=== PATIENT | female | born 1990 | race Caucasian/White ===

== ENCOUNTER 2017-03-18 15:12 | Emergency (ER) | payer OTHER ==
[~2017-03-18] VITALS: Ht 154.9 cm; Wt 70.3 kg
[~2017-03-18 15:12] MED LIST: CEPH500C PO; PREN1TAB58 PO
[2017-03-18] MEDS ORDERED: IV NORMAL SALINE 1,000ML 1,000 ML IV SCH (15:48)
[2017-03-18 16:16] LABS: BASO # 0.1 x10^3/uL (0.0-0.2); BASO % 1 % (0-3); EOS # 0.1 x10^3/uL (0.0-0.7); EOS % 1 % (0-3); HEMATOCRIT 39.4 % (36.0-47.0); HEMOGLOBIN 13.2 g/dL (12.0-15.5); LYMPH # 2.4 x10^3/uL (1.0-4.8); LYMPH % 20 % (24-48); MEAN CORPUSCULAR HEMOGLOBIN 31 pg (25-35); MEAN CORPUSCULAR HGB CONC 34 g/dL (31-37); MEAN CORPUSCULAR VOLUME 91 fL (79-100); MONO # 0.8 x10^3/uL (0.0-1.1); MONO % 7 % (0-9); NEUT # 8.5 x10^3uL (1.8-7.7); NEUT % 72 % (31-73); PLATELET COUNT 290 x10^3/uL (140-400); RED BLOOD COUNT 4.32 x10^6/uL (3.50-5.40); RED CELL DISTRIBUTION WIDTH 13.2 % (11.5-14.5); WHITE BLOOD COUNT 11.8 x10^3/uL (4.0-11.0)
[2017-03-18 16:22] LABS: BACTERIA,URINE FEW /HPF (0-FEW); BILIRUBIN,URINE NEG (NEG); CLARITY,URINE CLEAR; COLOR,URINE YELLOW; GLUCOSE,URINE NEG (NEG); NITRITE,URINE NEG (NEG); SQUAMOUS EPITHELIAL CELL,UR MOD /LPF; UROBILINOGEN,URINE 0.2 mg/dL (0.2 mg/dL)
[2017-03-18 16:27] LABS: CALCIUM 9.2 mg/dL (8.5-10.1); CREATININE 0.6 mg/dL (0.6-1.0); GFR 120.8; MAGNESIUM 1.9 mg/dL (1.8-2.4); POTASSIUM 3.8 mmol/L (3.5-5.1)
[2017-03-18] MEDS ORDERED: ONDANSETRON PF 4 MG/2 ML VIAL. IV ONE (16:30)
--- NOTE | 2017-03-18 16:50 | PHYS DOC ---
Past History Past Medical History: No Pertinent History Past Surgical History: No Surgical History Smoking: Non-smoker Alcohol Use: None Drug Use: None Adult General Chief Complaint Chief Complaint: VOMITING IN HPI HPI Patient is a 26 year old female who presents with complaint of vomiting. Patient states that she has been having significant vomiting over the past 3-4 days. Patient states however that her symptoms started a couple weeks ago. The patient took a test during that time and found out that she was . The patient's last menstrual period was January 12, 2017. The patient states that she is . Patient has not had any care with her current . The patient states that she is establishing an appointment with [facility] for follow-up in the next 1-2 weeks. Patient states that she is currently having lower abdominal cramping which she attributes to difficulty with tolerating oral intake. Patient rates her pain as 4 out of 10 currently. Patient has had numerous episodes of vomiting and states that she feels dehydrated. Patient states that she did have similar symptoms with her previous pregnancies but states that the symptoms have been more severe. Patient denies any fever and denies dysuria or hematuria. Patient also has not had any vaginal bleeding or abnormal vaginal discharge. Review of Systems Review of Systems Constitutional: Denies fever or chills [] Eyes: Denies change in visual acuity, redness, or eye pain [] HENT: Denies nasal congestion or sore throat [] Respiratory: Denies cough or shortness of breath [] Cardiovascular: Denies chest pain or edema[] GI: Nausea, vomiting, denies abdominal pain, bloody stools or diarrhea [] : Pelvic cramping, denies vaginal bleeding or discharge[] Musculoskeletal: Denies back pain or joint pain [] Integument: Denies rash or skin lesions [] Neurologic: Denies headache, focal weakness or sensory changes [] All other systems were reviewed and found to be within normal limits, except as documented in this note. Current Medications Current Medications Current Medications Medications (Trade) Dose Ordered Sig/Keo Start Time Stop Time Status Last Admin Dose Admin Ondansetron HCl (Zofran) 4 mg 1X ONCE 03/18/17 16:30 03/18/17 16:31 DC 03/18/17 16:08 4 MG Sodium Chloride 1,000 ml @ 1,000 mls/hr Q1H 03/18/17 15:48 03/18/17 16:47 03/18/17 16:07 1,000 MLS/HR Allergies Allergies Allergies Coded Allergies Type Severity Reaction Last Updated Verified No Known Drug Allergies 09/29/13 No Physical Exam Physical Exam Constitutional: Alert, afebrile, appears in mild to moderate discomfort. [] HENT: Normocephalic, atraumatic, bilateral external ears normal, oropharynx moist, no oral exudates, nose normal. [] Eyes: PERRLA, EOMI, conjunctiva normal, no discharge. [] Neck: Normal range of motion, no tenderness, supple, no stridor. [] Cardiovascular:Heart rate regular rhythm, no murmur [] Lungs & Thorax: Bilateral breath sounds clear to auscultation [] Abdomen: Bowel sounds normal, soft, no tenderness, no masses, no pulsatile masses. Pelvic: Normal external exam, no blood in vaginal canal, cervical os closed, no purulent discharge, no cervical motion tenderness, no midline or bilateral adnexal tenderness[] Skin: Warm, dry, no erythema, no rash. [] Back: No tenderness, no CVA tenderness. [] Extremities: No tenderness, no cyanosis, no clubbing, ROM intact, no edema. [] Neurologic: Alert and oriented X 3, normal motor function, normal sensory function, no focal deficits noted. [] Current Patient Data Vital Signs Vital Signs Date Time Temp Pulse Resp B/P (MAP) Pulse Ox O2 Delivery O2 Flow Rate FiO2 03/18/17 15:12 98.6 100 18 95 Room Air Lab Results Laboratory Tests Test 03/18/17 15:35 03/18/17 16:00 03/18/17 17:02 Urine Collection Type Unknown Urine Color Yellow Urine Clarity Clear Urine pH 7.0 Urine Specific [place] 1.020 Urine Protein Neg Urine Glucose (UA) Neg mg/dL Urine Ketones (Stick) 15 mg/dL Urine Blood Neg Urine Nitrite Neg Urine Bilirubin Neg Urine Urobilinogen Dipstick 0.2 mg/dL Urine Leukocyte Esterase Small Urine RBC 1-2 /HPF Urine WBC 1-4 /HPF Urine Squamous Epithelial Cells Mod /LPF Urine Bacteria Few /HPF Urine Mucus Mod /LPF White Blood Count 11.8 x10^3/uL Red Blood Count 4.32 x10^6/uL Hemoglobin 13.2 g/dL Hematocrit 39.4 % Mean Corpuscular Volume 91 fL Mean Corpuscular Hemoglobin 31 pg Mean Corpuscular Hemoglobin Concent 34 g/dL Red Cell Distribution Width 13.2 % Platelet Count 290 x10^3/uL Neutrophils (%) (Auto) 72 % Lymphocytes (%) (Auto) 20 % Monocytes (%) (Auto) 7 % Eosinophils (%) (Auto) 1 % Basophils (%) (Auto) 1 % Neutrophils # (Auto) 8.5 x10^3uL Lymphocytes # (Auto) 2.4 x10^3/uL Monocytes # (Auto) 0.8 x10^3/uL Eosinophils # (Auto) 0.1 x10^3/uL Basophils # (Auto) 0.1 x10^3/uL Maternal Serum HCG Beta Subunit 13980 mIU/mL Sodium Level 139 mmol/L Potassium Level 3.8 mmol/L Chloride Level 104 mmol/L Carbon Dioxide Level 24 mmol/L Anion Gap 11 Blood Urea Nitrogen 9 mg/dL Creatinine 0.6 mg/dL Estimated GFR (Cockcroft-Gault) 120.8 Glucose Level 98 mg/dL Calcium Level 9.2 mg/dL Magnesium Level 1.9 mg/dL Bedside Urine HCG, Qualitative hcg positive Current Medications Medications (Trade) Dose Ordered Sig/Keo Route PRN Reason Start Time Stop Time Status Last Admin Dose Admin Ondansetron HCl (Zofran) 4 mg 1X ONCE IV 03/18/17 16:30 03/18/17 16:31 DC 03/18/17 16:08 Sodium Chloride 1,000 ml @ 1,000 mls/hr Q1H IV 03/18/17 15:48 03/18/17 16:47 DC 03/18/17 16:07 EKG EKG Not performed[] Radiology/Procedures Radiology/Procedures [address] [address] IMAGING REPORT Signed PATIENT: MARIO ALBERTO WILSON ACCOUNT: [id number] : 1990 LOCATION: ER AGE: 26 SEX: F EXAM STATUS: REG ER ORD. PHYSICIAN: CEFERINO HCEN MD REASON: abd pain, LMP 01/20 PROCEDURE: OB <14 WKS W/TV Examination: Obstetric ultrasound less than 14 weeks HISTORY: History of nausea, cramping, abdominal pain COMPARISON: None available. FINDINGS: The uterus measures 9.6 x 6.8 x 5.7 cm. The right ovary measures 3.1 x 2.8 x 2.2 cm. Left ovary measures 2.2 x 2.1 0.9 cm Intrauterine gestational sac, yolk sac identified. pole is identified. The crown-rump length measures 1.6 cm corresponding to 8 weeks and 0 days. Gestational sac measures 2.19 cm corresponding to 7 weeks and 6 days. heart rate 168 bpm Gestational age by this ultrasound 8 weeks and 0 days. Estimated date of delivery by this ultrasound 10/28/2017. Given LMP 01/20/2017. Clinical age 8 weeks and 1 day. IMPRESSION: Single living intrauterine with heart rate of 168 bpm. Estimated gestational age by this ultrasound 8 weeks and 0 days. Electronically signed by: Fede Ritter MD (03/18/2017 5:48 PM) [facility] DICTATED AND SIGNED BY: FEDE RITTER MD DATE: 03/18/17 1746 CC: CEFERINO CHEN MD; PCP,NO ~ [] Course & Med Decision Making Course & Med Decision Making Pertinent Labs and Imaging studies reviewed. (See chart for details) Patient started on IV fluids and Zofran in the emergency department. Patient's symptoms improved on reevaluation. The patient's ultrasound shows a viable intrauterine . The patient discharged with Zofran prescription for treatment of nausea. Advise follow-up in one to 2 weeks with patient's [employer] physician for care. Advised return emergency department for any worsening symptoms. Patient voiced understanding and in agreement with treatment plan. Dragon Disclaimer Dragon Disclaimer This electronic medical record was generated, in whole or in part, using a voice recognition dictation system. Departure Departure: Impression: Primary Impression: Abdominal pain during Additional Impression: Nausea and vomiting Disposition: 01 HOME, SELF-CARE Condition: IMPROVED Referrals: PCP,NO (PCP) Patient Instructions: Abdominal Pain During , Nausea and Vomiting Additional Instructions: Follow-up with your physician in one to 2 weeks for reevaluation. Return to the emergency department for any worsening symptoms. Scripts Ondansetron (ZOFRAN ODT) 4 Mg Tab.rapdis 1 TAB SL Q8HRS Y for NAUSEA/VOMITING, #20 TAB Prov: CEFERINO CHEN MD 03/18/17 Problem Qualifiers Primary Impression: Abdominal pain during Trimester: first trimester Qualified Codes: O26.891 - Other specified related conditions, first trimester; R10.9 - Unspecified abdominal pain Additional Impression: Nausea and vomiting Vomiting type: unspecified Vomiting Intractability: unspecified Qualified Codes: R11.2 - Nausea with vomiting, unspecified CEFERINO CHEN MD Mar 18, 2017 16:50
--- NOTE | 2017-03-18 17:51 | RAD ---
Examination: Obstetric ultrasound less than 14 weeks HISTORY: History of nausea, cramping, abdominal pain COMPARISON: None available. FINDINGS: The uterus measures 9.6 x 6.8 x 5.7 cm. The right ovary measures 3.1 x 2.8 x 2.2 cm. Left ovary measures 2.2 x 2.1 0.9 cm Intrauterine gestational sac, yolk sac identified. pole is identified. The crown-rump length measures 1.6 cm corresponding to 8 weeks and 0 days. Gestational sac measures 2.19 cm corresponding to 7 weeks and 6 days. heart rate 168 bpm Gestational age by this ultrasound 8 weeks and 0 days. Estimated date of delivery by this ultrasound 10/28/2017. Given LMP 01/20/2017. Clinical age 8 weeks and 1 day. IMPRESSION: Single living intrauterine with heart rate of 168 bpm. Estimated gestational age by this ultrasound 8 weeks and 0 days. Electronically signed by: Fede Ritter MD (03/18/2017 5:48 PM) [facility]
[2017-03-18] MEDS ORDERED: ONDA4TAB10 SL (18:04)
[2017-03-18 18:16] VITALS: BP 104/67
[2017-03-23 10:11] LABS: CHLAMYDIA PROBE Negative (Negative)
== END 2017-03-18 18:16 | disposition home or self-care (01) ==
LOC: ER 15:12
DX: O21.9 Vomiting of pregnancy, unspecified (principal); O26.891 Other specified pregnancy related conditions, first trimester; O99.281 Endocrine, nutritional and metabolic diseases complicating pregnancy, first trimester; R10.9 Unspecified abdominal pain; E86.0 Dehydration; Z3A.08 8 weeks gestation of pregnancy
CPT/HCPCS: 36415; 76801; 76817; 80048; 81001; 81025; 83735; 84702; 85025; 87086; 96361; 96374; 99285; J2405; Q0111; 87491; 87591; J7030

== ENCOUNTER → 2018-08-24 | Outpatient (CLI) | payer OTHER ==
[~2018-08-24] MED LIST changes: +ONDA4TAB10 SL
--- NOTE | 2018-08-24 12:31 | RAD ---
EXAM: Abdomen sonogram. HISTORY: Pain. TECHNIQUE: Sonographic imaging of the abdomen was performed. COMPARISON: None. FINDINGS: The liver is normal in size. No focal hepatic lesion is seen. The spleen is normal in size. The gallbladder is full of stones. There is no bladder wall thickening. The common bile duct is normal in caliber. The pancreas is partially obscured due to bowel gas. The kidneys are normal in size. There is a prominent right renal pelvis. The aorta is normal in caliber. The inferior vena cava is patent. IMPRESSION: 1. Cholelithiasis. 2. Prominent right renal pelvis. This may be due to pelviectasis or an extrarenal pelvis. Electronically signed by: Naida Merritt MD (08/24/2018 12:28 PM) [facility]
== END | disposition home or self-care (01) ==
LOC: US 09:54
PROVIDERS: ATTEND Registered Nurse
DX: K80.80 Other cholelithiasis without obstruction (principal)
CPT/HCPCS: 76700